=== PATIENT | female | born 1945 | race Caucasian/White ===

== ENCOUNTER → 2016-08-17 12:44 | Outpatient (CLI) | payer MEDICARE ==
[2013-03-25 03:30] VITALS: BMI 36.6
[~2016-08-17 12:44] MED LIST: ATIVAN0.5 MG PO; CELEXA20 MG PO; DEMEROL50 MG PO; ELAVIL10 MG PO; K-DUR20 MEQ PO; LASIX40 MG PO; LOPRESSOR25 MG PO
[2016-08-21 08:02] VITALS: BMI 35.0
== END | disposition home or self-care (01) ==
LOC: D.NM 07-28 14:30
DX: C50.919 Malignant neoplasm of unspecified site of unspecified female breast (principal)

== ENCOUNTER 2016-08-21 05:13 | Day surgery (SDC) | payer MEDICARE ==
[2016-08-18 14:00] LABS: BASOPHILS 0.2 % (0.0-2.0); EOSINOPHILS 3.2 % (0-7); HEMATOCRIT 46.8 % (36.0-48.0); HEMOGLOBIN 15.8 g/dL (12-16); LYMPHOCYTES 26.6 % (15-50); MCH 32.3 pg (26.0-34.0); MCHC 33.8 g/dL (31.0-37.0); MCV 95.7 fL (80.0-100.0); MEAN PLATELET VOLUME 9.8 fL (7.4-10.4); MONOCYTES 19.4 % (2-11); NEUTROPHILS 50.6 % (40-80); RBC 4.89 10x6/uL (4.00-5.40); RDW 12.3 % (11.5-14.5); WBC 5.4 10x3/uL (4.8-10.8)
[2016-08-18 14:02] LABS: PLATELET COUNT 148 10x3/uL (130-400)
[2016-08-18 14:15] LABS: CALC OSMOLALITY 282 mosm/kg (275-300); CALCIUM 9.3 mg/dL (8.5-10.1); CARBON DIOXIDE 28.4 mmol/L (21.0-32.0); CHLORIDE - SERUM 106 mmol/L (98-107); CREATININE - SERUM 0.8 mg/dL (0.6-1.3); GLUCOSE 82 mg/dL (74-106); POTASSIUM - SERUM 4.5 mmol/L (3.5-5.1); SODIUM 143 mmol/L (136-145); UREA NITROGEN 11 mg/dL (7-18); eGFR NON AFRICAN AMERICAN 75 mL/min (90-120)
[2016-08-18 14:18] LABS: APTT 27.5 SECONDS (22.8-39.4); INR 1.09 (0.85-1.17)
[~2016-08-21] VITALS: Ht 158.8 cm; Wt 88.0 kg
[~2016-08-21 05:13] MED LIST changes: -DEMEROL50 MG PO
[2016-08-21 08:02] VITALS: BP 150/84; Ht 158.8 cm; Wt 88.0 kg
[2016-08-21] MEDS ORDERED: DEMEROL50 MG PO (12:34)
--- NOTE | 2016-08-21 14:46 | OP ---
PATIENT NAME: PATRICK MACK MEDICAL RECORD: [id number] :47 LOCATION:D.[facility] ADMISSION DATE: SURGEON: GREGG REBOLLEDO MD DATE OF OPERATION: 08/21/2016 SURGEON: Gregg Rebolledo MD PREOPERATIVE DIAGNOSIS: Right breast cancer. POSTOPERATIVE DIAGNOSIS: Right breast cancer. PROCEDURE PERFORMED: 1. Left subclavian tunneled PowerPort. 2. Immediate interpretation of fluoroscopy ANESTHESIA: General. COMPLICATIONS: None. SPECIMENS: None. Case was clean. ESTIMATED BLOOD LOSS: 5 cc. OPERATIVE COURSE: After consent was obtained, the patient was taken to the operating room and placed in supine position on the operating table. Next, general anesthesia was given via endotracheal intubation after a timeout was taken to confirm the correct patient and procedure. The left chest and neck were prepped and draped in typical sterile fashion. External landmarks were identified. A 30 cc of local anesthetic were injected in the left chest wall, left subclavian vein was cannulated on the first pass. At this time, the C-arm was positioned. The guidewire was advanced to the atriocaval junction under direct fluoroscopy. The needle was removed. Skin incision was made in the left chest wall with a 15 blade scalpel. Dissection continued to the level of the pectoralis fascia using electrocautery and blunt dissection. When the pectoralis fascia was identified, the catheter was tunneled using the tunneling device from the skin incision to the needle stick site. Under fluoroscopy, the dilator and breakaway sheath were advanced over the wire at the atriocaval junction and the wire and dilator were removed. The catheter was advanced to the breakaway sheath. The atriocaval junction entered under direct fluoroscopy. The breakaway sheath was removed. The port was then aspirated with positive blood return. It was then flushed with 5000 units of heparin and 30 cc of saline. It was secured to the pectoralis fascia using interrupted 2-0 Prolene suture. The wound was irrigated and suctioned. The deep layer was closed with 3-0 Vicryl sutures. Skin was closed with 4-0 Monocryl, Mastisol and Steri-Strips. At the end of the case, all needle and instrument counts were correct. No complications occurred. The patient was extubated and transferred to the PACU in stable condition. TRANSINT:[id number] Voice Confirmation ID: [id number] DOCUMENT ID: [id number] OPERATIVE REPORT [id number] PATRICK MACK,GREGG Augustin MD at 1446 CC: [id number] DICTATION DATE: 08/21/16 1233 HOOP PUNCHER: 08/21/16 1307 [id number] [place] [address]
--- NOTE | 2016-08-21 14:56 | NUR ---
1450--IV DC'D, PT UP TO DRESS AT THIS TIME. TATO MANZANO
--- NOTE | 2016-08-21 15:18 | NUR ---
1515--DISCHARGE INSTRUCTIONS GIVEN, PT VERBALIZES UNDERSTANDING. PT OFF UNIT VIA AMISHA. TATO MANZANO
== END 2016-08-21 15:15 | disposition home or self-care (01) ==
LOC: D.OPS 05:13 → D.PAN 08:30 → D.OPS 15:15
PROVIDERS: Anesthesiology
DX: C50.911 Malignant neoplasm of unspecified site of right female breast (principal); I10 Essential (primary) hypertension; Z95.1 Presence of aortocoronary bypass graft; Z95.5 Presence of coronary angioplasty implant and graft; K21.9 Gastro-esophageal reflux disease without esophagitis; M19.90 Unspecified osteoarthritis, unspecified site

== ENCOUNTER → 2016-12-27 12:15 | Outpatient (CLI) | payer MEDICARE ==
[2016-08-21 08:02] VITALS: BMI 35.0
[~2016-12-27 12:15] MED LIST changes: +DEMEROL50 MG PO
== END | disposition home or self-care (01) ==
LOC: D.RAD 12:15
DX: T82.868A Thrombosis due to vascular prosthetic devices, implants and grafts, initial encounter (principal)

== ENCOUNTER 2017-01-15 05:27 | Day surgery (SDC) | payer MEDICARE ==
[~2017-01-15] VITALS: Ht 158.8 cm; Wt 78.2 kg
[2017-01-15] MEDS ORDERED: IBUPROFEN200 MG (06:04)
[2017-01-15 06:11] VITALS: BP 178/88; BMI 30.6
[2017-01-15 06:55] LABS: BASOPHILS 0.3 % (0-2); EOSINOPHILS 1.8 % (0-7); HEMATOCRIT 38.6 % (36.0-48.0); HEMOGLOBIN 12.4 g/dL (12-16); IMMATURE GRANULOCYTES 1.3 % (0-5); LYMPHOCYTES 35.5 % (15-50); MCH 31.3 pg (26.0-34.0); MCHC 32.1 g/dL (31.0-37.0); MCV 97.5 fL (80.0-100.0); MEAN PLATELET VOLUME 9.9 fL (7.4-10.4); NEUTROPHILS 45.1 % (40-80); PLATELET COUNT 170 10x3/uL (130-400); RBC 3.96 10x6/uL (4.00-5.40); RDW 13.8 % (11.5-14.5)
[2017-01-15 07:08] LABS: CALC OSMOLALITY 287 mosm/kg (275-300); CALCIUM 9.2 mg/dL (8.5-10.1); CARBON DIOXIDE 26.2 mmol/L (21.0-32.0); CHLORIDE - SERUM 108 mmol/L (98-107); CREATININE - SERUM 0.8 mg/dL (0.6-1.3); GLUCOSE 97 mg/dL (74-106); POTASSIUM - SERUM 3.7 mmol/L (3.5-5.1); SODIUM 144 mmol/L (136-145); UREA NITROGEN 16 mg/dL (7-18); eGFR NON AFRICAN AMERICAN 75 mL/min (90-120)
[2017-01-15 07:11] LABS: INR 1.11 (0.85-1.17); PROTIME 14.2 SECONDS (11.6-15.0)
[2017-01-15] MEDS ORDERED: PERCOCET 5-3251 TAB PO (13:48)
--- NOTE | 2017-01-15 17:40 | NUR ---
PAGED DR REBOLLEDO, CALL BACK RECEIVED, REPORTED TO DR REBOLLEDO PATIENT'S COMPLAINTS OF EXTREME DIZZINESS, ORDERS TO ADMIT OVERNIGHT RECEIVED
--- NOTE | 2017-01-15 18:29 | NUR ---
PATIENT TRANSPORTED BY WHEELCHAIR TO ROOM 220
[2017-01-15 18:49] VITALS: BP 191/65; Ht 158.8 cm; Wt 78.2 kg
--- NOTE | 2017-01-15 18:59 | NUR ---
RECEIVED TO ROOM 2201 VIA FROM OUTPATIENT. A/O X3. NO C/O AT THIS TIME. SKIN IS INTACT WITHOUT REDNESS EXCEPT INCISIONS TO RIGHT BREAST AND RIGHT AXILLA WHICH ARE DRY AND INTACT WITHOUT SIGNS OF INFECTION. C/O NAUSEA WITH ATCITIVY. GIVEN SPRITE AND TOLD TO SIP SLOWLY WHICH SHE SAYS IS HELPFUL.
--- NOTE | 2017-01-15 19:30 | NUR ---
REC'D PATIENT LYING IN BED. ALERT AND ORIENTED X4. REPORTED PAIN 7/10. NO DISTRESS NOTED. STATED SHE WAS NAUSOUS. WILL ADMINISTER PM MEDS PRESCRIBED. INSTRUCTED TO CALL IF NEEDED ANYTHING. IS AT BEDSIDE. WILL CONT TO MONITOR THROUGHOUT THE NIGHT. BED LOW, LOCKED CALL LIGHT IN REACH.
[2017-01-15 20:00] VITALS: BP 198/93
[2017-01-16] VITALS: BP 175/81
--- NOTE | 2017-01-16 02:00 | NUR ---
PT IN BED WITH NO DISTRESS. RESPIRATIONS EVEN AND UNLABORED. SIDE RAILS X 2. BED LOW. CALL LIGHT IN REACH.
--- NOTE | 2017-01-16 03:20 | NUR ---
PATIENT IS RESTING IN BED. NO DISTRESS NOTED. WILL CONT TO MONITOR. INSTRUCTED TO CALL IF NEEDED ANYTHING BED LOW, LOCKED, CALL LIGHT IN REACH.
[2017-01-16 04:00] VITALS: BP 175/78
[2017-01-16 05:05] LABS: BASOPHILS 0.3 % (0-2); EOSINOPHILS 0.4 % (0-7); HEMATOCRIT 35.1 % (36.0-48.0); HEMOGLOBIN 11.3 g/dL (12-16); IMMATURE GRANULOCYTES 1.4 % (0-5); LYMPHOCYTES 29.1 % (15-50); MCH 31.7 pg (26.0-34.0); MCHC 32.2 g/dL (31.0-37.0); MCV 98.3 fL (80.0-100.0); MEAN PLATELET VOLUME 10.4 fL (7.4-10.4); MONOCYTES 14.2 % (2-11); NEUTROPHILS 54.6 % (40-80); PLATELET COUNT 185 10x3/uL (130-400); RBC 3.57 10x6/uL (4.00-5.40); RDW 13.8 % (11.5-14.5); WBC 7.1 10x3/uL (4.8-10.8)
[2017-01-16 05:28] LABS: CALC OSMOLALITY 284 mosm/kg (275-300); CALCIUM 8.7 mg/dL (8.5-10.1); CARBON DIOXIDE 29.6 mmol/L (21.0-32.0); CHLORIDE - SERUM 107 mmol/L (98-107); CREATININE - SERUM 0.7 mg/dL (0.6-1.3); GLUCOSE 112 mg/dL (74-106); POTASSIUM - SERUM 3.8 mmol/L (3.5-5.1); SODIUM 143 mmol/L (136-145); eGFR NON AFRICAN AMERICAN 88 mL/min (90-120)
[2017-01-16 05:31] LABS: UREA NITROGEN 9 mg/dL (7-18)
--- NOTE | 2017-01-16 08:12 | NUR ---
AWAKE AND ALERT. ORIENTED X3. C/O PAIN TO RIGHT AXILLA. REFUSED OFFER OF PERCOCET, TOOK IBUPROFEN INSTEAD. WILL MONITOR. LUNGS ARE CLEAR BILATERALLY, NO COUGH NOTED. SKIN IS INTACT WITHOUT REDNESS EXCEPT INCISION TO RIGHT BREAST AND AXILLA CLEAN DRY AND WELL APPROXIMATED. IV TO LEFT HAND PATENT WITHOUT REDNESS AT INSERTION SITE. STILL HAVING SOME NAUSEA. WILL MONITOR.
--- NOTE | 2017-01-16 08:41 | OP ---
PATIENT NAME: PATRICK MACK MEDICAL RECORD: [id number] :47 LOCATION:D[facility] ADMISSION DATE: SURGEON: GREGG REBOLLEDO MD DATE OF OPERATION: 01/15/2017 SURGEON: Gregg Rebolledo MD PREOPERATIVE DIAGNOSIS: Right breast adenocarcinoma. POSTOPERATIVE DIAGNOSIS: Right breast adenocarcinoma. PROCEDURES PERFORMED: 1. Right breast partial mastectomy with preoperative needle localization. 2. Right sentinel lymph node biopsy with preoperative nuclear med lymphoscintigraphy. ESTIMATED BLOOD LOSS: 50 cc ANESTHESIA: General. COMPLICATIONS: None. SPECIMENS: 1. Right breast lumpectomy. 2. Right sentinel lymph node biopsy. Case was clean. OPERATIVE COURSE: After consent was obtained, the patient was taken to the operating room and placed in the supine position on the operating table. Next, general anesthesia was given via endotracheal intubation after a timeout was taken to confirm the correct patient and procedure. The right breast and axilla were prepped and draped in typical sterile fashion. The patient had received preoperative needle localization in the right breast as well as preoperative nuclear med lymphoscintigraphy. A timeout was taken to confirm the correct patient and procedure. A 2 cc of Lymphazurin blue dye were injected in the nipple areolar complex. Local anesthetic was injected around the needle and an elliptical skin incision was made. Dissection continued with combination of electrocautery and sharp dissection. A core of tissue was taken surrounding the needle. The specimen and needle were removed and sent for mammographic confirmation. The wound bed was copiously irrigated and suctioned. It was cauterized. Clips were placed for imaging. The breast tissue was then closed in 3 layers, deep subQ with 3-0 Vicryl, superficial subQ with 3-0 Vicryl and skin with a 4-0 Stratafix, Mastisol and Steri-Strips. Next, local anesthetic was injected in the axilla. Skin incision was made. Dissection continued with electrocautery ____. Within the axilla, dissection was performed with Metzenbaum scissors. Blue dye was identified ____ nodes brightly colored with Lymphazurin dye. The [employer] counter was used which registered over 1500. The lymph node and surrounding tissue was sharply excised using Metzenbaum scissors. Again, the specimen was removed, now registered over 2000 with the [employer] counter. It was sent for permanent pathology. Multiple clips were placed in the axillary bed for guidance. The wound bed was copiously irrigated and suctioned. Hemostasis was obtained with electrocautery and 3-0 Vicryl suture. The axilla was closed in multiple layers, deep subQ was closed with 3-0 Vicryl sutures, superficial layer with 3-0 Vicryl sutures and the skin with 4-0 OPERATIVE REPORT [id number] PATRICK MACK Stratafix, Mastisol and Steri-Strips. At the end of the case, all needle and instrument counts were correct. No complications occurred. The patient extubated and transferred to the PACU in stable condition. TRANSINT:[id number] Voice Confirmation ID: [id number] DOCUMENT ID: [id number] GREGG REBOLLEDO MD at 0841 CC: [id number] DICTATION DATE: 01/15/17 1346 R D INTERNSHIP: 01/16/17 0055 REG [facility] [address] [id number]
[2017-01-16 09:17] VITALS: BP 165/80
--- NOTE | 2017-01-16 09:54 | NUR ---
ATE MOST OF BREAKFAST. REPORTS SOME RELIEF WITH USE OF IBUPROFEN. ICE PLACED TO RIGHT AXILLA.
[2017-01-16] MEDS ORDERED: HYDROCODON-ACE1 EAC7 PO (10:00)
[2017-01-16 11:54] VITALS: BP 176/95
--- NOTE | 2017-01-16 12:47 | NUR ---
ATE ALL OF LUNCH. DISCHARGED TO HOME WITH AMBULATORY. DISCHARGE INSTRUCTIONS GIVEN BOTH VERBALLY AND WRITTEN. ALL QUESTIONS ANSWERED. PATIENT AND VERBALIZED UNDERSTANDING OF SAME. NEEDED PRESCRIPTIONS GIVEN TO PATIENT. IV TO LEFT HAND D/C WITH CATHETER INTACT.
== END 2017-01-16 12:50 | disposition home or self-care (01) ==
LOC: D.OPS 05:27 → D.NM 07:30 → D.PAN 07:30 → D.OPS 09:00 → D.MS 18:35 → D.OPS 01-16 12:50
PROVIDERS: Anesthesiology; Surgery
DX: C50.911 Malignant neoplasm of unspecified site of right female breast (principal); N60.11 Diffuse cystic mastopathy of right breast; R59.0 Localized enlarged lymph nodes; Z01.812 Encounter for preprocedural laboratory examination

== ENCOUNTER 2017-02-06 20:45 | Emergency (ER) | payer MEDICARE ==
[2017-01-15 18:49] VITALS: BMI 31.0
[~2017-02-06 20:45] MED LIST changes: +HYDROCODON-ACE1 EAC7 PO; +IBUPROFEN200 MG; +PERCOCET 5-3251 TAB PO
[2017-02-06 21:33] LABS: BASOPHILS 0.1 % (0-2); EOSINOPHILS 2.7 % (0-7); HEMATOCRIT 42.5 % (36.0-48.0); IMMATURE GRANULOCYTES 0.1 % (0-5); MCH 31.7 pg (26.0-34.0); MCHC 32.9 g/dL (31.0-37.0); MCV 96.4 fL (80.0-100.0); MEAN PLATELET VOLUME 10.5 fL (7.4-10.4); MONOCYTES 9.5 % (2-11); NEUTROPHILS 53.6 % (40-80); PLATELET COUNT 180 10x3/uL (130-400); RBC 4.41 10x6/uL (4.00-5.40); RDW 13.9 % (11.5-14.5); WBC 7.3 10x3/uL (4.8-10.8)
[2017-02-06 21:48] LABS: ALBUMIN 3.7 g/dL (3.4-5.0); ALKALINE PHOSPHATASE 137 U/L (46-116); ALT (SGPT) 35 U/L (10-68); BILIRUBIN - TOTAL 0.36 mg/dL (0.2-1.3); CALC OSMOLALITY 286 mosm/kg (275-300); CHLORIDE - SERUM 107 mmol/L (98-107); GLUCOSE 102 mg/dL (74-106); PROTEIN - SERUM 7.4 g/dL (6.4-8.2); SODIUM 144 mmol/L (136-145); UREA NITROGEN 13 mg/dL (7-18); eGFR NON AFRICAN AMERICAN 58 mL/min (90-120)
[2017-02-06 21:52] LABS: CREATINE KINASE 49 UL (21-215)
[2017-02-06 21:54] LABS: TROPONIN-I < 0.017 ng/mL (0.000-0.060)
== END 2017-02-06 23:05 | disposition home or self-care (01) ==
LOC: D.ER 20:45
PROVIDERS: Emergency Medicine
DX: I10 Essential (primary) hypertension (principal); I25.10 Atherosclerotic heart disease of native coronary artery without angina pectoris; Z85.3 Personal history of malignant neoplasm of breast; K21.9 Gastro-esophageal reflux disease without esophagitis; M79.7 Fibromyalgia

== ENCOUNTER → 2017-05-30 12:51 | Outpatient (CLI) | payer MEDICARE ==
[2017-01-15 18:49] VITALS: BMI 31.0
== END | disposition home or self-care (01) ==
LOC: D.SP 12:51 → D.OPS 12:51
DX: T82.868A Thrombosis due to vascular prosthetic devices, implants and grafts, initial encounter (principal)

== ENCOUNTER 2017-07-04 13:21 | Emergency (ER) | payer MEDICARE ==
[2017-01-15 18:49] VITALS: BMI 31.0
[2017-07-04 15:01] LABS: ALBUMIN 3.4 g/dL (3.4-5.0); CALC OSMOLALITY 282 mosm/kg (275-300); CALCIUM 9.5 mg/dL (8.5-10.1); CARBON DIOXIDE 28.2 mmol/L (21.0-32.0); CHLORIDE - SERUM 106 mmol/L (98-107); CREATININE - SERUM 0.7 mg/dL (0.6-1.3); GLUCOSE 92 mg/dL (74-106); POTASSIUM - SERUM 3.6 mmol/L (3.5-5.1); SODIUM 142 mmol/L (136-145); UREA NITROGEN 13 mg/dL (7-18); eGFR NON AFRICAN AMERICAN 88 mL/min (90-120)
[2017-07-04 15:14] LABS: ALKALINE PHOSPHATASE 113 U/L (46-116); ALT (SGPT) 30 U/L (10-68); BILIRUBIN - TOTAL 0.49 mg/dL (0.2-1.3)
== END 2017-07-04 15:31 | disposition home or self-care (01) ==
LOC: D.ER 13:21
PROVIDERS: Emergency Medicine
DX: I10 Essential (primary) hypertension (principal); K21.9 Gastro-esophageal reflux disease without esophagitis; Z85.3 Personal history of malignant neoplasm of breast

== ENCOUNTER → 2018-01-25 09:10 | Outpatient (CLI) | payer MEDICARE ==
[2017-01-15 18:49] VITALS: BMI 31.0
--- NOTE | ~2018-01-25 | EC ---
PATIENT:PATRICK MACK DATE OF SERVICE: 01/25/18 SEX: F MEDICAL RECORD: [id number] DATE OF : 47 LOCATION:D[facility] AGE OF PATIENT: 72 ADMISSION DATE: 01/25/18 REFERRING PHYSICIAN: INTERPRETING PHYSICIAN: SHARRI METZGER MD ECHOCARDIOGRAM REPORT ECHO CHARGES 4 ECHO COMPLETE Date: 01/25 CLINICAL DIAGNOSIS: ASSESS EF DUE TO CHEMO TREATMENT, HX OF CAD/CABG/STENTS ECHOCARDIOGRAPHIC MEASUREMENTS (adult normal given) AC root (d.<3.7cm) 3.5 cm LV Septum d (<1.2 cm> 1.5 cm Valve Excursion 1.8 cm LV Septum (systole) 1.8 cm Left Atria (s.<4.0cm> 3.9 cm LVPW d(<1.2cm) 1.8 cm RV (d.<2.3cm) 3.9 cm LVPW (sytole) 2.1 cm LV diastole(<5.6CM) 4.4 cm MV E-F(>70mm/sec) cm LV systole 2.2 cm LVOT Diameter 1.9 cm MV exc.(>10mm) 1.6 cm Est.ejection fraction (50-75%) % DOPPLER: LVIT cm/sec A 103 cm/sec E 84.0 cm/sec LA cm/sec RVSP 39 mmHg LVOT 128 cm/sec AOP1/2T m/s Asc. 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 José TAPE# PACS Pericardial Effusion N DATE OF SERVICE: 01/25/2018 PROCEDURE: Echocardiogram. FINDINGS: 1. Left ventricular chamber size is within normal limits. Left ventricular systolic function is normal. Overall ejection fraction estimated at 60%. 2. Left atrium is upper limits of normal at 3.9 cm. Right atrium and right ventricle chamber sizes are mildly dilated. ECHOCARDIOGRAM REPORT [id number] PATRICK MACK 3. Valvular structures have normal structure and motion. 4. Doppler interrogation reveals only mild tricuspid regurgitation, no other valvular insufficiency or stenosis. Pulmonary systolic pressure is normal estimated at 27 mmHg. 5. No evidence of pericardial effusion or left ventricular thrombus. TRANSINT:[id number] Voice Confirmation ID: [id number] DOCUMENT ID: [id number] SHARRI METZGER MD at 1713 CC: [id number] DICTATION DATE: 01/25/18 1059 CHIEF ENGINEER PRODUCTION: 01/25/18 1105 DEP CLI 01/25/18 [id number] [id number]
== END | disposition home or self-care (01) ==
LOC: D.ECHO 09:10
DX: C50.919 Malignant neoplasm of unspecified site of unspecified female breast (principal)

== ENCOUNTER → 2018-09-10 19:34 | Outpatient (CLI) | payer MEDICARE ==
[2017-01-15 18:49] VITALS: BMI 31.0
== END | disposition home or self-care (01) ==
LOC: D.MAMMO 10:30
DX: C50.919 Malignant neoplasm of unspecified site of unspecified female breast (principal)

== ENCOUNTER → 2019-06-17 13:35 | Outpatient (CLI) | payer MEDICARE ==
[2017-01-15 18:49] VITALS: BMI 31.0
== END | disposition home or self-care (01) ==
LOC: D.HCCECHO 13:35 → D.HCCARDIO 14:00
PROVIDERS: ATTEND Internal Medicine Cardiovascular Disease
DX: I25.10 Atherosclerotic heart disease of native coronary artery without angina pectoris (principal)

== ENCOUNTER 2019-10-14 12:38 | Outpatient (CLI) | payer MEDICARE ==
[~2019-10-14] VITALS: Ht 157.5 cm; Wt 77.3 kg
[2019-10-14 13:22] VITALS: BP 151/83; Ht 157.5 cm; Wt 77.3 kg
--- NOTE | 2019-10-14 14:25 | NUR ---
REVIEWED ORDERS WITH PHARMACIST, MEDICATION WILL NOT BE SUSCEPTIBLE FOR A 1 TIME DOSE. POSSIBLE OTHER MEDICATIONS DISCUSSED WITH [facility] PHARMACIST AND DR. KEARNS. DR. KEARNS TO CALL IN MONUROL SCRIPT AND NEW URINE SAMPLE OBTAINED IN CLINIC ON SUNDAY. QUESTIONABLE TO IF UTI IS STILL PRESENT SINCE ORDERS ARE 12 DAYS OLD.
== END 2019-10-14 14:25 | disposition home or self-care (01) ==
LOC: D.OPS 12:38
PROVIDERS: ATTEND Family Medicine
DX: N39.0 Urinary tract infection, site not specified (principal)

== ENCOUNTER 2020-03-09 13:30 | Outpatient (CLI) | payer MEDICARE ==
[2019-10-14 13:22] VITALS: BMI 31.1
== END 2020-03-09 14:30 | disposition home or self-care (01) ==
LOC: D.MAMMO 13:30
PROVIDERS: ATTEND Internal Medicine Hematology & Oncology
DX: C50.411 Malignant neoplasm of upper-outer quadrant of right female breast (principal)